=== PATIENT | male | born 1950 | race Caucasian/White ===

== ENCOUNTER → 2018-08-08 | Outpatient (CLI) | payer OTHER, BC ==
--- NOTE | ~2018-08-08 | PATH ---
[facility] [place] [address] PATHOLOGY RPT PROCEDURE Name: VIOLETCHAIM Root Room #: REG [facility] M.Shivani.#: [id number] Admission: 08/08/18 Date of : 54 Discharge: Report #: [id number] Path Case #: [id number] [facility] Accession Number: [id number] . 01 Material submitted: . PART A: BIOPSY - GASTRIC R/O H PYLORI PART B: POLYP - GASTRIC PART C: BIOPSY - ESOPHAGEAL R/O BARRETTS . 01 Clinical history: . Pre-OP DX: GERD Post-OP DX: Gastritis, duodenitis, possible Bullock's, gastric polyp . 02 Diagnosis: A. Gastric mucosa, gastric rule out H. pylori, endoscopic biopsy: - Mild chronic inflammation. - Negative for intestinal metaplasia or atrophy. - Negative for Helicobacter pylori (properly controlled immunohistochemical stain performed). . B. Polyp, gastric, endoscopic biopsy: - Compatible with a hyperplastic polyp. - Negative for dysplasia or malignancy. . C. Gastroesophageal mucosa, esophageal rule out Bullock's, endoscopic biopsy: - Gastric fundic-type mucosa with moderate chronic inflammation; no definite intestinal metaplasia present. - Squamous mucosa with mild esophagitis. - Negative for dysplasia or malignancy. (IUV/db; 08/09/18) LBQ/08/09/2018 . 02 Electronically signed: . Obdulia Isidro MD, Pathologist NPI- [id number] . 01 Gross description: . A. Received in formalin labeled "Chaim Tran, gastric biopsy, rule out H. pylori," are 3 segments of fraser soft tissue measuring 0.9 x 0.6 x 0.3 cm in aggregate dimensions and ranging from 0.3 to 0.5 cm in maximum dimension. The specimen is submitted entirely in cassette A1. . B. Received in formalin labeled "Chaim Tran, gastric polyp," is a single segment of fraser soft tissue measuring 0.5 cm in maximum dimension. The specimen is entirely submitted in cassette B1[place] [address] PATHOLOGY RPT PROCEDURE Name: CHAIM TRAN [id number] Admission: 08/08/18 Date of : 54 Discharge: Report #: [id number] Path Case #: [id number] C. Received in formalin labeled "Chaim Tran, esophageal biopsy," are 3 segments of fraser soft tissue measuring 0.5 x 0.4 x 0.1 cm in aggregate dimensions and ranging from 0.2 to 0.3 cm in maximum dimension. The specimen is submitted entirely in cassette C1. (TSD; 08/08/2018) TOB/TOB . 02 Pathologist provided ICD-10: K29.50, K31.7, K20.8 . 02 CPT . 633139, 760275, 106591, L21536 Specimen Comment: A courtesy copy of this report has been sent to Specimen Comment: [phone], . Specimen Comment: Report sent to / DR ONEILL Performed at: [address], [place] [id number] MD Ugo Olsen MD Phone: [phone] Performed at: [address] [id number] MD Obdulia Isidro MD Phone: [phone]
== END | disposition home or self-care (01) ==
LOC: GI 09:59
DX: K29.50 Unspecified chronic gastritis without bleeding (principal); K31.7 Polyp of stomach and duodenum; K20.8 Other esophagitis; K44.9 Diaphragmatic hernia without obstruction or gangrene; I10 Essential (primary) hypertension; E11.9 Type 2 diabetes mellitus without complications; E78.00 Pure hypercholesterolemia, unspecified; K21.9 Gastro-esophageal reflux disease without esophagitis; Z79.899 Other long term (current) drug therapy; Z98.890 Other specified postprocedural states
CPT/HCPCS: 62110; 62900

== ENCOUNTER → 2018-11-14 | Outpatient (CLI) | payer OTHER, BC ==
[~2018-11-14] VITALS: Ht 188 cm; Wt 117.9 kg
[~2018-11-14] MED LIST: ATENOLOL 100MG100 MG PO; LIPITOR 20 MG T20 M1 PO; LISINOPRIL-HCT1 EAC1 PO; MAGOX 400400 MG PO; NOVOLOG FL100 UNIT/M SUBQ; TRESIBA FL200 UNIT/1 SUBQ; TRULICITY1.5 MG/0.5 SUBQ; TUMS PO; VITAMIN A10000 UNI3 PO; VITAMIN D2000 UNIT PO; VITAMIN K100 MCG PO
--- NOTE | 2018-11-15 17:06 | PATH ---
[facility] [address] [place] [address] PATHOLOGY RPT PROCEDURE Name: CHAIM TRAN Room #: REG [facility] Oscar.#: [id number] ������������������ Admission: 11/14/18 ������������������ Date of : 54 Discharge: Report #: [id number] Path Case #: [id number] [facility] Accession Number: [id number] . 01 Material submitted: . ESOPHAGEAL BX . 01 Clinical history: . GERD, history esophagitis Esophagitis Rule out Bullock's . 02 Diagnosis: Gastroesophageal mucosa, esophageal rule out Bullock's, endoscopic biopsy: - Focal specialized columnar epithelium (gastric fundic-type mucosa) with early intestinal metaplasia, changes compatible with Bullock's metaplasia. (Please see comment). - Negative for dysplasia or malignancy. - Squamous mucosa with mild esophagitis. - Focal fibrinopurulent material suggestive of ulceration; no active ulcer present in this biopsy tissue. . (IUV:mml; 11/15/2018) QLM/11/15/2018 . 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 . (IUV:mml; 11/15/2018) . 02 Electronically signed: . Obdulia Isidro MD, Pathologist NPI- [id number] . 01 Gross description: . The specimen is received in formalin, labeled "Chaim Tran, esophageal BX" and consists of 3 fragments of pink-fraser tissue measuring between 0.3 x 0.1 cm and 0.5 x 0.3 x 0.2 cm. They are entirely submitted in A1. (SDY; 11/14/2018) SYU/SYU . 02 Pathologist provided ICD-10: K22.70 [place] [address] PATHOLOGY RPT PROCEDURE Name: CHAIM TRAN Room #: REG CLI [facility].#: [id number] ������������������ Admission: 11/14/18 ������������������ Date of : 54 Discharge: Report #: [id number] Path Case #: [id number] . 02 [facility] . [id number] Specimen Comment: A courtesy copy of this report has been sent to Specimen Comment: [phone], . Specimen Comment: Report sent to / DR ONEILL Performed at: [address] [facility] [address], [place], [place] [id number] MD Ugo Olsen MD Phone: [phone] Performed at: [address] [id number] MD Obdulia Isidro MD Phone: [phone]
== END | disposition home or self-care (01) ==
LOC: GI 07:38
DX: K22.70 Barrett's esophagus without dysplasia (principal); K21.0 Gastro-esophageal reflux disease with esophagitis; K22.8 Other specified diseases of esophagus; K31.89 Other diseases of stomach and duodenum; I10 Essential (primary) hypertension; E11.9 Type 2 diabetes mellitus without complications; E78.5 Hyperlipidemia, unspecified; E66.09 Other obesity due to excess calories; Z98.890 Other specified postprocedural states; Z79.82 Long term (current) use of aspirin; Z79.899 Other long term (current) drug therapy
CPT/HCPCS: 62110; 62900